=== PATIENT | male | born 1945 | race Caucasian/White ===

== ENCOUNTER 2016-02-25 22:05 | Observation (INO) | payer MEDICARE, OTHER ==
[~2016-02-25] VITALS: Ht 175.3 cm; Wt 105.0 kg
[2016-02-25] MEDS ORDERED: SODIUM CHLOR 0.9% 1000 ML INJ 1,000 ML IV ONE (22:11)
[2016-02-25 22:14] VITALS: BP 155/94; PULSE 87; RESP 16; TEMP 98.4; O2SAT 96
[2016-02-25] MEDS ORDERED: SODIUM CHLORIDE 0.9% FLUSH 5 ML FLUSH IVF PRN (22:15)
[2016-02-25] MEDS ORDERED: ONDANSETRON HCL 4 MG/2 ML VIAL IVP ONE (22:15)
[2016-02-25 22:29] LABS: AUTOMATED NEUTROPHIL # 3.2 TH/MM3 (1.8-7.7); BASOPHIL # 0.1 TH/MM3 (0-0.2); BASOPHIL % 0.8 % (0.0-2.0); EOSINOPHIL # 0.2 TH/MM3 (0-0.4); EOSINOPHIL % 3.8 % (0.0-4.0); HEMATOCRIT 43.2 % (39.0-51.0); HEMO FLAGS DIFF FINAL; LYMPH % 36.1 % (9.0-44.0); LYMPHOCYTE # 2.3 TH/MM3 (1.0-4.8); MEAN CELL VOLUME 89.6 FL (80.0-100.0); MEAN CORPUSCULAR HEMOGLOBIN 31.1 PG (27.0-34.0); MEAN CORPUSCULAR HGB CONC 34.7 % (32.0-36.0); MONO % 9.5 % (0.0-8.0); NEUT % 49.8 % (16.0-70.0); PLATELET COUNT 183 TH/MM3 (150-450); RED BLOOD COUNT 4.82 MIL/MM3 (4.50-5.90); RED CELL DISTRIBUTION WIDTH 12.3 % (11.6-17.2); WHITE BLOOD COUNT 6.3 TH/MM3 (4.0-11.0)
--- NOTE | 2016-02-25 22:39 | RADRPT ---
EXAM DATE/TIME: 02/25/2016 22:26 [facility] COMPARISON: No previous studies available for comparison. INDICATIONS : Syncopal episode today. MEDICAL HISTORY : Hypertension. Carcinoma, bladder. SURGICAL HISTORY : None. ENCOUNTER: Initial ACUITY: 1 day PAIN SCORE: 0/10 LOCATION: Bilateral chest FINDINGS: A single view of the chest demonstrates the lungs to be symmetrically aerated without evidence of mas s, infiltrate or effusion. The cardiomediastinal contours are unremarkable. Osseous structures are intact. CONCLUSION: No evidence of acute cardiopulmonary disease. Noe Burnham MD on February 25, 2016 at 22:37 Board Certified Radiologist. This report was verified electronically.
[2016-02-25 22:41] LABS: APTT (PATIENT) 26.4 SEC (24.3-30.1); PROTHROMBIN TIME - PATIENT 10.6 SEC (9.8-11.6)
--- NOTE | 2016-02-25 22:46 | RADRPT ---
EXAM DATE/TIME: 02/25/2016 22:28 [facility] COMPARISON: No previous studies available for comparison. INDICATIONS : Syncope. RADIATION DOSE: 56.35 CTDIvol (mGy) MEDICAL HISTORY : Cardiovascular disease. Hypertension. Carcinoma, bladder. SURGICAL HISTORY : CABG Appendectomy. ENCOUNTER: Initial ACUITY: 1 day PAIN SCALE: 0/10 LOCATION: cranial TECHNIQUE: Multiple contiguous axial images were obtained of the head. Using automated exposure control and adj ustment of the mA and/or kV according to patient size, radiation dose was kept as low as reasonably a chievable to obtain optimal diagnostic quality images. FINDINGS: CEREBRUM: The ventricles are normal for age. No evidence of midline shift, mass lesion, hemorrhage or acute in farction. No extra-axial fluid collections are seen. POSTERIOR FOSSA: The cerebellum and brainstem are intact. The 4th ventricle is midline. The cerebellopontine angle i s unremarkable. EXTRACRANIAL: The visualized portion of the orbits is intact. SKULL: The calvaria is intact. No evidence of skull fracture. CONCLUSION: Negative noncontrast head CT. Noe Burnham MD on February 25, 2016 at 22:44 Board Certified Radiologist. This report was verified electronically.
[2016-02-25 22:57] LABS: ANION GAP 6 MEQ/L (5-15); AST (GOT) 23 U/L (15-37); BLOOD UREA NITROGEN 20 MG/DL (7-18); CHLORIDE 104 MEQ/L (98-107); GLOMERULAR FILTRATION RATE 65 ML/MIN (>89); MAGNESIUM 2.1 MG/DL (1.5-2.5); POTASSIUM 3.5 MEQ/L (3.5-5.1); SODIUM (NA) 140 MEQ/L (136-145)
[2016-02-25 22:59] LABS: ALKALINE PHOSPHATASE 75 U/L (45-117); ALT (GPT) 40 U/L (12-78); CREATINE KINASE 159 U/L (39-308); TOTAL BILIRUBIN ADULT 0.4 MG/DL (0.2-1.0)
[2016-02-25 23:00] VITALS: BP 150/76; PULSE 81; RESP 16; O2SAT 96
[2016-02-25 23:05] VITALS: BP_SYST 142; BP_SYST 150; BP_SYST 156; BP_DIAS 76; BP_DIAS 82; BP_DIAS 93; RESP 16; RESP 18
[2016-02-25 23:11] LABS: CKMB 2.5 NG/ML (0.5-3.6)
[2016-02-25] MEDS ORDERED: SIMV20TA PO (23:21)
[2016-02-25] MEDS ORDERED: ASPI81CH PO (23:21)
[2016-02-25] MEDS ORDERED: LOSA100T3 PO (23:21)
[2016-02-25] MEDS ORDERED: PLAV75TA29 PO (23:21)
[2016-02-25] MEDS ORDERED: AMLO5TAB2 PO (23:21)
[2016-02-25] MEDS ORDERED: CARV3.12 PO (23:21)
[2016-02-26] VITALS (10 sets, daily range): BP systolic 122–165; BP diastolic 59–93; PULSE 45–88; RESP 16–20; TEMP 96.9–98; O2SAT 95–98
[2016-02-26 02:14] LABS: BLOOD, URINE NEG (NEG); COMMENT (UR) CULT NOT INDICATED; CULTURE IF INDICATED CULT NOT INDICATED; GLUCOSE,URINE NEG (NEG); HYALINE CAST, URINE 1 /lpf (RARE); KETONE, URINE NEG (NEG); MUCUS URINE FEW /lpf (OCC); NITRITE,URINE NEG (NEG); SQUAMOUS EPITHELIAL CELL URINE <1 /hpf (0-5); URINE COLOR YELLOW (YELLW/STRAW)
--- NOTE | 2016-02-26 02:35 | PD ---
HPI Chief Complaint: Syncope/Near-Syncope Time Seen by Provider: 22:11 Travel History International Travel<30 days: No Contact w/Intl Traveler<30days: No Traveled to known affect area: No History of Present Illness HPI 71-year-old male presents to the emergency department by EMS transport. Reportedly just prior to arrival to the emergency department while leaving a movie theater reportedly feeling well he received reportedly stressful noted is that his granddaughter had been placed in long-term and he became suddenly weak and had a witnessed syncopal episode without trauma. Patient was able to come to an upon EMS arrival was refusing transport however when he was being assisted upright he started to have an additional syncopal episode brief in duration and remained unsteady. Patient has prior history of CAD. Patient denies any preceding or current chest pain palpitations sweats shortness of breath referred neck jaw back shoulder arm or abdominal pain. Patient states while resting supine he presently feels fine. Patient has had no headache change in mentation visual disturbance change in speech facial weakness unilateral upper or lower extremity numbness tingling or weakness. Patient has had no recent febrile illness no respiratory illness no urinary symptoms no diarrheal illness. No recent dietary indiscretion well water ingestion or foreign travel. Patient is visiting from out of state from [place] but denies any pleuritic pain shortness of breath hemoptysis or prior clotting disorder or family history of clotting disorder also no lower extremity pain or swelling. PFSH Past Medical History Narrative Medical Bladder cancer CAD ND dyslipidemia hypertension cardiac stents 2 no tobacco use nursing notes reviewed Cancer: Yes (BLADDER) Hypertension: Yes Myocardial Infarction: Yes (X2) Tetanus Vaccination: < 5 Years Influenza Vaccination: Yes Past Surgical History Appendectomy: Yes Cardiac Surgery: Yes (STENT X2) Social History Alcohol Use: Yes (OCC) Tobacco Use: No Substance Use: No Allergies-Medications (Allergen,Severity, Reaction): Coded Allergies: No Known Allergies (Unverified , 02/25/16) Reported Meds & Prescriptions Reported Meds & Active Scripts Active Reported Losartan-Hydrochlorothiazide 100-12.5 Mg Tab 1 Tab PO DAILY Carvedilol 3.125 Mg Tab 3.125 Mg PO BID Simvastatin 20 Mg Tab 20 Mg PO DAILY Amlodipine (Amlodipine Besylate) 5 Mg Tab 5 Mg PO DAILY Plavix (Clopidogrel Bisulfate) 75 Mg Tab 75 Mg PO DAILY Aspirin 81 Mg Chew 81 Mg PO DAILY Review of Systems Except as stated in HPI: all other systems reviewed are Neg Physical Exam Narrative GENERAL: Well-developed well-nourished male in no acute distress no respiratory distress SKIN: Warm and dry. HEAD: Atraumatic. Normocephalic. EYES: Pupils equal and round. No scleral icterus. No injection or drainage. ENT: No nasal bleeding or discharge. Mucous membranes pink and moist. NECK: Trachea midline. No JVD. CARDIOVASCULAR: Regular rate and rhythm. RESPIRATORY: No accessory muscle use. Clear to auscultation. Breath sounds equal bilaterally. GASTROINTESTINAL: Abdomen soft, non-tender, nondistended. Hepatic and splenic margins not palpable. MUSCULOSKELETAL: Extremities without clubbing, cyanosis, or edema. No obvious deformities. NEUROLOGICAL: Awake and alert. No obvious cranial nerve deficits. Motor grossly within normal limits. Five out of 5 muscle strength in the arms and legs. No limb ataxia. No pronator drift. DTRs 2+ and equal. Sensory exam intact. Normal speech. PSYCHIATRIC: Appropriate mood and affect; insight and judgment normal. Data Data Last Documented VS Vital Signs Date Time Temp Pulse Resp B/P Pulse Ox O2 Delivery O2 Flow Rate FiO2 02/26/16 02:00 63 16 129/67 95 Room Air 02/25/16 22:14 98.4 Orders Electrocardiogram (02/25/16 22:11) Complete Blood Count With Diff (02/25/16 22:11) Comprehensive Metabolic Panel (02/25/16 22:11) Magnesium (Mg) (02/25/16 22:11) B-Type Natriuretic Peptide (02/25/16 22:11) Ckmb (Isoenzyme) Profile (02/25/16 22:11) Troponin I (02/25/16 22:11) Act Partial Throm Time (Ptt) (02/25/16 22:11) Prothrombin Time / Inr (Pt) (02/25/16 22:11) Urinalysis - C+S If Indicated (02/25/16 22:11) Chest, Single Ap (02/25/16 22:11) Ct Brain W/O Iv Contrast(Rout) (02/25/16 22:11) Blood Glucose (02/25/16 22:11) Ecg Monitoring (02/25/16 22:11) Iv Access Insert/Monitor (02/25/16 22:11) Oximetry (02/25/16 22:11) Ondansetron Inj (Zofran Inj) (02/25/16 22:15) Sodium Chloride 0.9% Flush (Ns Flush) (02/25/16 22:15) Sodium Chlor 0.9% 1000 Ml Inj (Ns 1000 M (02/25/16 22:11) Orthostatic Vital Signs (02/25/16 22:11) CKMB (02/25/16 22:15) CKMB% (02/25/16 22:15) D-Dimer (02/25/16 23:30) Admit Order (Ed Use Only) (02/26/16 ) ^ Saline Lock (02/26/16 02:35) Resp Oxygen Adalberto C Titrat 1-4 L (02/26/16 ) ^ Notify Dr: Other (02/26/16 02:35) Sodium Chloride 0.9% Flush (Ns Flush) (02/26/16 09:00) Sodium Chloride 0.9% Flush (Ns Flush) (02/26/16 02:45) Place In Observation (02/26/16 ) Vital Signs (Adult) Q4H (02/26/16 02:34) Activity Oob With Assistance (02/26/16 02:34) ^ Customs 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 Agent / Telemetry .CONTINUOUS (02/26/16 02:34) Diet Heart Healthy (02/26/16 Breakfast) Sodium Chloride 0.9% Flush (Ns Flush) (02/26/16 02:45) Sodium Chloride 0.9% Flush (Ns Flush) (02/26/16 09:00) Creatine Kinase (Cpk) (02/26/16 04:20) Creatine Kinase (Cpk) (02/26/16 10:20) Troponin I (02/26/16 04:20) Troponin I (02/26/16 10:20) Electrocardiogram (02/26/16 04:20) Electrocardiogram (02/26/16 10:20) Pt Request For Service (02/26/16 02:34) Enoxaparin Inj (Lovenox Inj) (02/26/16 09:00) Naloxone Inj (Narcan Inj) (02/26/16 02:45) Echo 2d Comp W/Dopp(Routine) (02/26/16 ) Us Carotid Arteries Comp Bilat (02/26/16 ) Labs Laboratory Tests Test 02/25/16 02/26/16 22:15 01:30 White Blood Count 6.3 TH/MM3 Red Blood Count 4.82 MIL/MM3 Hemoglobin 15.0 GM/DL Hematocrit 43.2 % Mean Corpuscular Volume 89.6 FL Mean Corpuscular Hemoglobin 31.1 PG Mean Corpuscular Hemoglobin 34.7 % Concent Red Cell Distribution Width 12.3 % Platelet Count 183 TH/MM3 Mean Platelet Volume 9.5 FL Neutrophils (%) (Auto) 49.8 % Lymphocytes (%) (Auto) 36.1 % Monocytes (%) (Auto) 9.5 % Eosinophils (%) (Auto) 3.8 % Basophils (%) (Auto) 0.8 % Neutrophils # (Auto) 3.2 TH/MM3 Lymphocytes # (Auto) 2.3 TH/MM3 Monocytes # (Auto) 0.6 TH/MM3 Eosinophils # (Auto) 0.2 TH/MM3 Basophils # (Auto) 0.1 TH/MM3 CBC Comment DIFF FINAL Differential Comment Prothrombin Time 10.6 SEC Prothromb Time International 1.0 RATIO Ratio Activated Partial 26.4 SEC Thromboplast Time Sodium Level 140 MEQ/L Potassium Level 3.5 MEQ/L Chloride Level 104 MEQ/L Carbon Dioxide Level 30.0 MEQ/L Anion Gap 6 MEQ/L Blood Urea Nitrogen 20 MG/DL Creatinine 1.11 MG/DL Estimat Glomerular Filtration 65 ML/MIN Rate Random Glucose 103 MG/DL Calcium Level 8.8 MG/DL Magnesium Level 2.1 MG/DL Total Bilirubin 0.4 MG/DL Aspartate Amino Transf 23 U/L (AST/SGOT) Alanine Aminotransferase 40 U/L (ALT/SGPT) Alkaline Phosphatase 75 U/L Total Creatine Kinase 159 U/L Creatine Kinase MB 2.5 NG/ML Troponin I 0.03 NG/ML B-Type Natriuretic Peptide 31 PG/ML Total Protein 7.5 GM/DL Albumin 3.8 GM/DL D-Dimer Quantitative (PE/DVT) 0.48 MG/L FEU Urine Color YELLOW Urine Turbidity CLEAR Urine pH 5.0 Urine Specific [place] 1.026 Urine Protein TRACE mg/dL Urine Glucose (UA) NEG mg/dL Urine Ketones NEG mg/dL Urine Occult Blood NEG Urine Nitrite NEG Urine Bilirubin NEG Urine Urobilinogen LESS THAN 2.0 MG/DL Urine Leukocyte Esterase NEG Urine RBC 1 /hpf Urine WBC 1 /hpf Urine Squamous Epithelial <1 /hpf Cells Urine Hyaline Casts 1 /lpf Urine Mucus FEW /lpf Microscopic Urinalysis Comment CULT NOT INDICATED MDM Medical Decision Making Medical Screen Exam Complete: Yes Emergency Medical Condition: Yes Medical Record Reviewed: Yes Interpretation(s) EKG: Normal sinus rhythm rate 84 right bundle branch block left anterior fascicular block left ventricular hypertrophy septal Q waves no acute ST elevation cxr: nad per Dr Burnham CT brain w/o: NAD cbc: wnl cmp: wnp trop0: 0.03, noty elevated ua: wnl Differential Diagnosis syncope; arrhythmia, anemia, ACS, PE, TIA, CVA Narrative Course Patient placed on smart grid engineer IV access obtained specimens collected and sent for resulting Patient remains asymptomatic and comfortable in the ED ED Imaging studies revealed no acute abnormality Lab values are found to be grossly within normal limits Patient's case discussed with on-call have his physician for admission for syncope Procedures EKG Prior to Arrival: Yes Physician Communication Physician Communication discussed with Dr Hutchinson Diagnosis Primary Impression: Syncope Additional Impression: Bradycardia Xi Prado MD Feb 26, 2016 02:35
[2016-02-26] MEDS ORDERED: NALOXONE HCL 0.4 MG/ML AMP IV PRN (02:45)
[2016-02-26] MEDS ORDERED: SODIUM CHLORIDE 0.9% FLUSH 5 ML FLUSH FLUSH PRN (02:45)
[2016-02-26] MEDS ORDERED: SODIUM CHLORIDE 0.9% FLUSH 5 ML FLUSH IVF PRN (02:45)
[2016-02-26] MEDS ORDERED: SODIUM CHLORIDE 0.9% FLUSH 5 ML FLUSH IVF SCH (09:00)
[2016-02-26] MEDS ORDERED: ENOXAPARIN SODIUM 40 MG/0.4 ML SYRINGE SQ SCH (09:00)
[2016-02-26] MEDS ORDERED: CLOPIDOGREL 75 MG TAB PO SCH (09:00)
[2016-02-26] MEDS ORDERED: PRAVASTATIN SOD 40 MG TAB PO SCH (09:00)
[2016-02-26] MEDS ORDERED: amLODIPine BESYLATE 5 MG TAB PO SCH (09:00)
[2016-02-26] MEDS ORDERED: SODIUM CHLORIDE 0.9% FLUSH 5 ML FLUSH FLUSH SCH (09:00)
[2016-02-26] MEDS ORDERED: LOSARTAN 50 MG TAB PO SCH (09:00)
[2016-02-26] MEDS ORDERED: NON-FORMULARY DRUG (Losartan-Hydrochlorothiazide 1 TAB) PO SCH (09:00)
[2016-02-26] MEDS ORDERED: HYDROCHLOROTHIAZIDE 12.5 MG CAP PO SCH (09:00)
[2016-02-26] MEDS ORDERED: ASPIRIN 81 MG CHEW TAB PO SCH (09:00)
--- NOTE | 2016-02-26 10:16 | HHI.HP ---
[facility] Service [facility] Primary Care Physician Shannan Mujica MD Admission Diagnosis syncope Diagnoses: Chief Complaint: Near-syncope Travel History International Travel<30 Days: No Contact w/Intl Traveler <30 Da: No Traveled to Known Affected Are: No History of Present Illness 71-year-old male with past medical history of CAD, HTN, HLD, Hx bladder CA who presented with near syncopal episode yesterday. The patient's family are down from [place] for vacation. The patient states that he was leaving the movie theater yesterday and received a call that his adopted granddaughter had been arrested for a domestic incident with her boyfriend. He states that after he received the call he was very distressed and overwhelmed about the incident and he collapsed. He states that he fell to his knees and caught himself with his hands, didn't have any head trauma. He doesn't recall any loss of consciousness. He states that he is only down for a few seconds and his mental status returned to baseline after a few seconds. He denies any chest pain, palpitations, shortness breath, nausea, vomiting, fever, chills, vision changes , lightheadedness, dizziness, paresthesias, orthostasis. He states that after the incident he was feeling a little weak, so he came to the hospital. He is still quite overwhelmed and tearful about his granddaughter's situation because she has a history of alcohol syndrome and she has to go before a director [employer] today. He states his is currently dealing with this situation now. He reports being compliant with his home medications, denies any recent changes. 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 He feels well today and has ambulated to the restroom with no difficulties. Review of Systems Other 10 point review of systems performed and was negative except as stated in history of present illness Past Family Social History Past Medical History Coronary artery disease Hypertension Hyperlipidemia History of bladder cancer, currently with yearly follow-up checks Past Surgical History Coronary stenting 7 years ago and again in September 2015 Appendectomy Reported Medications Losartan-Hydrochlorothiazide 100-12.5 Mg Tab 1 Tab PO DAILY Carvedilol 3.125 Mg Tab 3.125 Mg PO BID Simvastatin 20 Mg Tab 20 Mg PO DAILY Amlodipine (Amlodipine Besylate) 5 Mg Tab 5 Mg PO DAILY Plavix (Clopidogrel Bisulfate) 75 Mg Tab 75 Mg PO DAILY Aspirin 81 Mg Chew 81 Mg PO DAILY Allergies: Coded Allergies: No Known Allergies (Unverified , 02/25/16) Active Ordered Medications Current Medications Medications (Trade) Dose Ordered Sig/Froylan Route Start Time Stop Time Status Last Admin (NS Flush) 2 ml UNSCH PRN FLUSH 02/26/16 02:45 (NS Flush) 2 ml BID FLUSH 02/26/16 09:00 (Lovenox Inj) 40 mg Q24H SQ 02/26/16 09:00 02/26/16 09:02 (Narcan Inj) 0.4 mg UNSCH PRN IV 02/26/16 02:45 (Norvasc) 5 mg DAILY PO 02/26/16 09:00 02/26/16 09:03 (Aspirin Chew) 81 mg DAILY PO 02/26/16 09:00 02/26/16 09:03 (Plavix) 75 mg DAILY PO 02/26/16 09:00 02/26/16 09:04 (Pravachol) 40 mg DAILY PO 02/26/16 09:00 02/26/16 09:04 (Cozaar) 100 mg DAILY PO 02/26/16 09:00 02/26/16 09:02 (Microzide) 12.5 mg DAILY PO 02/26/16 09:00 02/26/16 09:02 Family History Mother had diabetes and passed at age 63 Father had some kind neck cancer and at 81 Brother had diabetes and passed weight a 63 Social History Has one glass of wine daily Denies any tobacco or drug use Physical Exam Vital Signs Vital Signs Date Time Temp Pulse Resp B/P Pulse Ox O2 Delivery O2 Flow Rate FiO2 02/26/16 06:08 98.0 71 20 152/86 95 02/26/16 06:07 72 02/26/16 05:00 66 16 155/82 96 Room Air 02/26/16 04:00 49 16 135/59 96 Room Air 02/26/16 03:06 96 02/26/16 02:00 63 16 129/67 95 Room Air 02/26/16 01:00 69 16 122/70 98 Room Air 02/26/16 00:00 88 16 165/93 98 Room Air 02/25/16 23:05 80 16 150/76 86 16 142/82 86 18 156/93 02/25/16 23:00 81 16 150/76 96 Room Air 02/25/16 22:14 96 Room Air 02/25/16 22:14 98.4 87 16 155/94 96 Physical Exam GENERAL: Well-developed well-nourished. In no acute distress. SKIN: Warm and dry. No lesions noted. HEENT: Normocephalic. Pupils equal and round. Mucous membranes pink and moist. CARDIOVASCULAR: Regular rate and rhythm. No murmur appreciated. RESPIRATORY: No accessory muscle use. Clear to auscultation. Breath sounds equal bilaterally. GASTROINTESTINAL: Abdomen soft, non-tender, nondistended. Bowel sounds x4. MUSCULOSKELETAL: No obvious deformities. No clubbing or cyanosis. No edema. NEUROLOGICAL: Awake and alert. No focal neurological deficits. Moves upper and lower extremities spontaneously. Normal speech. PSYCHIATRIC: Appropriate and occasionally tearful mood and affect; insight and judgment normal. Laboratory Laboratory Tests Test 02/25/16 02/26/16 02/26/16 22:15 01:30 04:43 White Blood Count 6.3 Red Blood Count 4.82 Hemoglobin 15.0 Hematocrit 43.2 Mean Corpuscular Volume 89.6 Mean Corpuscular Hemoglobin 31.1 Mean Corpuscular Hemoglobin 34.7 Concent Red Cell Distribution Width 12.3 Platelet Count 183 Mean Platelet Volume 9.5 Neutrophils (%) (Auto) 49.8 Lymphocytes (%) (Auto) 36.1 Monocytes (%) (Auto) 9.5 Eosinophils (%) (Auto) 3.8 Basophils (%) (Auto) 0.8 Neutrophils # (Auto) 3.2 Lymphocytes # (Auto) 2.3 Monocytes # (Auto) 0.6 Eosinophils # (Auto) 0.2 Basophils # (Auto) 0.1 CBC Comment DIFF FINAL Differential Comment Prothrombin Time 10.6 Prothromb Time International 1.0 Ratio Activated Partial 26.4 Thromboplast Time Sodium Level 140 Potassium Level 3.5 Chloride Level 104 Carbon Dioxide Level 30.0 Anion Gap 6 Blood Urea Nitrogen 20 Creatinine 1.11 Estimat Glomerular Filtration 65 Rate Random Glucose 103 Calcium Level 8.8 Magnesium Level 2.1 Total Bilirubin 0.4 Aspartate Amino Transf 23 (AST/SGOT) Alanine Aminotransferase 40 (ALT/SGPT) Alkaline Phosphatase 75 Total Creatine Kinase 159 106 Creatine Kinase MB 2.5 Troponin I 0.03 0.05 B-Type Natriuretic Peptide 31 Total Protein 7.5 Albumin 3.8 D-Dimer Quantitative (PE/DVT) 0.48 Urine Color YELLOW Urine Turbidity CLEAR Urine pH 5.0 Urine Specific [place] 1.026 Urine Protein TRACE Urine Glucose (UA) NEG Urine Ketones NEG Urine Occult Blood NEG Urine Nitrite NEG Urine Bilirubin NEG Urine Urobilinogen LESS THAN 2.0 Urine Leukocyte Esterase NEG Urine RBC 1 Urine WBC 1 Urine Squamous Epithelial <1 Cells Urine Hyaline Casts 1 Urine Mucus FEW Microscopic Urinalysis Comment CULT NOT INDICATED Result Diagram: 02/25/16221402/25/162214 Imaging Last Impressions Head CT 02/25/162210 Signed Impressions: Service Date/Time: Thursday, February 25, 2016 22:28 - CONCLUSION: Negative noncontrast head CT. Noe Burnham MD Chest X-Ray 02/25/162210 Signed Impressions: Service Date/Time: Thursday, February 25, 2016 22:26 - CONCLUSION: No evidence of acute cardiopulmonary disease. Noe Burnham MD Assessment and Plan Problem List: (1) Syncope ICD Code: R55 Status: Acute Assessment and Plan 71-year-old male with past medical history of CAD, HTN, HLD, Hx bladder CA who presented with near syncopal episode Near syncope: Otherwise asymptomatic. Likely stress-induced based on history. No definite LOC. Labs reviewed and unremarkable. Head CT unremarkable. Chest CT with no acute process. EKG with NSR and RBBB, no acute ST changes. Carotid ultrasound with no significant stenosis. Patient educated on importance of avoiding stressors. History of CAD: Continue aspirin, Plavix, statin, beta imelda. Hypertension: BP is well controlled. Continue above meds and losartan, HCTZ. Disposition: Symptoms are likely stress-induced, doubt medical etiology. Discharge home today for follow-up with PCP. Written by Bill Moulton, acting as scribe for Dr. Medina on 02/26/16 at 10:16. Discussed Condition With Patient Problem Qualifiers (1) Syncope: Qualified Code: R55 - Syncope, unspecified syncope type Bill Moulton Feb 26, 2016 10:16
--- NOTE | 2016-02-26 10:37 | RADRPT ---
EXAM DATE/TIME: 02/26/2016 09:05 [facility] COMPARISON: No previous studies available for comparison. INDICATIONS : Syncope. MEDICAL HISTORY : Myocardial infarction. Hypercholesterolemia. Hypertension. Bladder cancer. SURGICAL HISTORY : Appendectomy. Cardiac stent x 2. ENCOUNTER: Initial ACUITY: 1 day PAIN SCORE: 0/10 LOCATION: Bilateral neck PEAK SYSTOLIC VELOCITIES (cm/sec): ICA/CCA RATIO: Right: 1.2 Left: 1.2 ICA: Right: 106 Left: 99 CCA: Right: 86 Left: 85 ECA: Right: 92 Left: 84 VERTEBRAL: Right: 82 antegrade Left: 40 antegrade Elevated flow velocities and ICA/CCA ratios have been found to correlate with increased degrees of vessel stenosis, calculated as percentage of diameter relative to a normal segment of distal ICA/CCA FINDINGS: RIGHT CAROTID: No significant stenosis is visualized. The waveforms are within normal limits. LEFT CAROTID: No significant stenosis is visualized. The waveforms are within normal limits. VERTEBRAL ARTERIES: Antegrade flow is seen in both vertebral arteries. MISCELLANEOUS: None. CONCLUSION: No evidence of flow-limiting carotid stenosis. Noe Nicolas MD on February 26, 2016 at 10:34 Board Certified Radiologist. This report was verified electronically.
--- NOTE | 2016-02-26 23:42 | EKG ---
Date Performed: 02/26/2016 Time Performed: 04:55:11 PTAGE: 71 years EKG: Sinus rhythm RIGHT BUNDLE BRANCH BLOCK LEFT ANTERIOR FASCICULAR BLOCK MODERATE VOLTAGE CRITERIA FOR LVH, CONSIDER NORMAL VARIANT POSSIBLE SEPTAL MYOCARDIAL INFARCTION ABNORMAL ECG PREVIOUS TRACING : 02/25/2016 22.16 DOCTOR: Karen Lamb Interpretating Date/Time 02/26/2016 23:40:01
--- NOTE | 2016-02-26 23:48 | EKG ---
Date Performed: 02/25/2016 Time Performed: 22:16:09 PTAGE: 71 years EKG: Sinus rhythm RIGHT BUNDLE BRANCH BLOCK LEFT ANTERIOR FASCICULAR BLOCK LEFT VENTRICULAR HYPERTROPHY AND ST-T BA E POSSIBLE SEPTAL MYOCARDIAL INFARCTION ABNORMAL ECG NO PREVIOUS TRACING DOCTOR: Karen Lamb Interpretating Date/Time 02/26/2016 23:42:32
== END 2016-02-26 11:06 | disposition home or self-care (01) ==
LOC: NEPC 22:05 → NEDA 02-26 02:36 → NEPFCDU 02-26 06:04
PROVIDERS: ADMIT Internal Medicine; ATTEND Internal Medicine
DX: R55 Syncope and collapse (principal); I25.10 Atherosclerotic heart disease of native coronary artery without angina pectoris; Z95.5 Presence of coronary angioplasty implant and graft; Z85.51 Personal history of malignant neoplasm of bladder; I10 Essential (primary) hypertension; E78.5 Hyperlipidemia, unspecified; I25.2 Old myocardial infarction; Z79.899 Other long term (current) drug therapy; I45.10 Unspecified right bundle-branch block; I44.4 Left anterior fascicular block; R00.1 Bradycardia, unspecified; Z79.01 Long term (current) use of anticoagulants
CPT/HCPCS: 70450; 71010; 80053; 81001; 82550; 82552; 83735; 83880; 84484; 85025; 85379; 85610; 85730; 93005; 93880; 96361; 96374; 99285; G0378; J1650; J2405; J7030